=== PATIENT | male | born 1970 | race Caucasian/White ===

== ENCOUNTER → 2017-01-26 | Outpatient (CLI) | payer BC ==
[2017-01-26 13:29] LABS: ALKALINE PHOSPHATASE 56 U/L (45-117); ALT/SGPT 22 U/L (12-78); ANION GAP 5 MEQ/L (8-16); AST/SGOT 13 U/L (15-37); BILIRUBIN,TOTAL 0.3 MG/DL (0.2-1.0); BLOOD UREA NITROGEN 17 MG/DL (7-18); CALCIUM LEVEL 8.4 MG/DL (8.5-10.1); CARBON DIOXIDE LEVEL 31 MEQ/L (21-32); CHLORIDE LEVEL 106 MEQ/L (98-107); CREATININE FOR GFR 1.06 MG/DL (0.70-1.30); GLOMERULAR FILTRATION RATE > 60.0 (>60); GLUCOSE, FASTING 92 MG/DL (70-105); POTASSIUM SERUM 4.6 MEQ/L (3.5-5.1); SODIUM LEVEL 142 MEQ/L (136-145); TRIGLYCERIDES LEVEL 95 MG/DL (<150)
[2017-01-26 13:30] LABS: ALBUMIN 3.7 GM/DL (3.2-5.2); ALBUMIN/GLOBULIN RATIO 1.16 (1.00-1.93); CHOLESTEROL LEVEL 169 MG/DL (<200); TOTAL PROTEIN 6.9 GM/DL (6.4-8.2)
== END ==
LOC: M WUC 10:18
PROVIDERS: ATTEND Physician Assistant
DX: E78.01 Familial hypercholesterolemia (principal)

== ENCOUNTER 2021-01-06 21:17 | Emergency (ER) | payer BC, SELFPAY ==
[~2021-01-06] VITALS: Ht 167.6 cm; Wt 87.7 kg
[2021-01-07] MEDS ORDERED: KETOROLAC 30 MG/ML 1ML VIAL IV ONE (02:40)
[2021-01-07 03:12] LABS: BASO % 0.2 % (0.0-1.0); EOS # 0.1 10^3/uL (0.0-0.5); EOS % 3.2 % (0.0-3.0); HEMATOCRIT 46.7 % (42.0-52.0); HEMOGLOBIN 15.4 g/dl (13.5-17.5); LYMPH # 1.6 10^3/uL (1.5-5.0); LYMPH % 37.4 % (24.0-44.0); MEAN CORPUSCULAR HEMOGLOBIN 30.5 pg (27.0-33.0); MEAN CORPUSCULAR VOLUME 92.5 fl (80.0-96.0); MONO # 0.6 10^3/uL (0.0-0.8); MONO % 12.6 % (2.0-8.0); NEUTROPHILS % 46.4 % (36.0-66.0); PLATELET COUNT, AUTOMATED 201 10^3/uL (150-450); RED BLOOD COUNT 5.05 10^6/uL (4.30-6.10); WHITE BLOOD COUNT 4.4 10^3/uL (4.0-10.0)
[2021-01-07] MEDS ORDERED: ISOVUE-370 76% 100ML VIAL As Ordered ONE (03:13)
[2021-01-07 04:04] LABS: ALBUMIN 3.6 GM/DL (3.2-5.2); ALT/SGPT 56 U/L (12-78); BILIRUBIN,DIRECT < 0.1 MG/DL (0.0-0.2); BILIRUBIN,TOTAL 0.3 MG/DL (0.2-1.0); CK-MB VALUE MASS < 1.0 NG/ML (<3.6); CPK CREATINE PHOSPHOKINASE 78 U/L (39-308); LIPASE 269 U/L (73-393); MB/CK RELATIVE INDEX 1.28 (< OR =4); TOTAL PROTEIN 7.2 GM/DL (6.4-8.2); TROPONIN I < 0.02 NG/ML (< 0.10)
--- NOTE | 2021-01-07 04:56 | REPVR ---
PROCEDURE INFORMATION: Exam: CT Abdomen And Pelvis With Contrast Exam date and time: 01/07/2021 3:32 AM Age: 50 years old Clinical indication: Abdominal pain; Other: Left flank pain, hematuria, ? mass seen on CT 2 years ago TECHNIQUE: Imaging protocol: Computed tomography of the abdomen and pelvis with contrast. Radiation optimization: All CT scans at this facility use at least one of these dose optimization techniques: automated exposure control; mA and/or kV adjustment per patient size (includes targeted exams where dose is matched to clinical indication); or iterative reconstruction. Contrast material: ISOVUE 370; Contrast volume: 100 ml; Contrast route: INTRAVENOUS (IV); COMPARISON: No relevant prior studies available. FINDINGS: Lungs: There is mild bibasilar atelectatic lung changes. Mediastinal space: There is a small sliding hiatal hernia. Liver: Normal. No mass. Gallbladder and bile ducts: Normal. No calcified stones. No ductal dilation. Pancreas: Normal. No ductal dilation. Spleen: Evaluation of the spleen is limited due to heterogeneous phase of enhancement. Adrenal glands: Normal. No mass. Kidneys and ureters: There is 3 mm left lower renal pole nonobstructing stone. Stomach and bowel: Unremarkable. No obstruction. No mucosal thickening. Appendix: No evidence of appendicitis. Intraperitoneal space: Unremarkable. No free air. No significant fluid collection. Vasculature: Unremarkable. No abdominal aortic aneurysm. Lymph nodes: There is significant central to left abdominal mesenteric stranding coupled with enlarged lymph nodes measuring up to 1.9 x 1.7 centimetres. Some calcification is seen at the inferior and superior aspect of this process. Urinary bladder: Unremarkable as visualized. Reproductive: Unremarkable as visualized. Bones/joints: Unremarkable. No acute fracture. Soft tissues: There is a small bilateral fat containing inguinal hernias. IMPRESSION: 1. 3 mm nonobstructing left lower renal pole stone. 2. Senait mesentery: Central to left abdominal mesenteric inflammation and stranding with numerous enlarged lymph nodes measuring up to 1.9 cm with few calcifications. No old studies available for comparison. Findings could be secondary to chronic inflammatory adenitis however mesenteric neoplasm or mesenteric lymphoma are in the differential diagnosis. Comparison to old studies is needed. Further evaluation with laparoscopic and laparoscopic biopsy is suggested. 3. Small sliding hiatal hernia and small bilateral fat containing inguinal hernias. Electronically signed by: Naif Spring On 01/07/2021 04:56:07 AM
[2021-01-07 06:52] VITALS: BP 125/78
--- NOTE | 2021-01-08 18:41 | ECGEPIP ---
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
== END 2021-01-07 06:54 | disposition home or self-care (01) ==
LOC: M ED 21:17
DX: R19.07 Generalized intra-abdominal and pelvic swelling, mass and lump (principal); N20.0 Calculus of kidney; J98.11 Atelectasis
CPT/HCPCS: 74177; 80047; 80076; 81001; 82550; 82553; 83690; 84484; 85025; 93005; 96374; 99284; J1885; Q9967